=== PATIENT | male | born 1940 | race Caucasian/White ===

== ENCOUNTER 2018-07-27 10:16 | Day surgery (SDC) | payer MEDICARE ==
[2018-07-27] MEDS ORDERED: LIDOCAINE 1% W/EPI 1:200,000 MPF 30ML SQ ONE (10:17)
--- NOTE | 2018-07-28 08:30 | Operative Note ---
DATE OF SURGERY: 07/27/2018 PREOPERATIVE DIAGNOSES: 1. Right ring finger trigger finger. 2. Right middle finger trigger finger. OPERATION: 1. Right ring finger trigger finger release. 2. Right middle finger trigger finger release. Staff Surgeon: Jm Mejias MD Anesthesia: Local. Preparation: Chloraprep. Individual Considerations: None. PROCEDURE: The patient was taken to the operating room and placed supine on the operating room table. His right arm was prepped and draped in the usual fashion. The patient had a volar approach to the A1 gordon. A longitudinal incision was made directly over the A1 gordon about 2 cm. The skin was infiltrated with 1% lidocaine with epinephrine prior. The limb was elevated and tourniquet was inflated to 250 mmHg. I started on the middle finger. An incision was made directly over the gordon. Sharp dissection carried down through the skin. Blunt dissection carried down on top of the gordon. Soft tissue was retracted on either side to avoid the neurovascular bundle. A geoff was made in the gordon and it was released proximally and distally. I had him move his finger. It would no longer trigger. I did the exact same procedure as described on the ring finger. The tourniquet was let down. Hemostasis was obtained with compression. After irrigation, the skin was approximated with interrupted 3-0 nylon in a vertical mattress fashion. A sterile bulky compressive hand dressing was applied. The patient tolerated procedure well. Needle and sponge counts were correct. Estimated blood loss was minimal. He was taken back to the recovery room in good condition. There were no complications. ALEJA
== END 2018-07-27 11:40 | disposition home or self-care (01) ==
LOC: SUR 10:16
PROVIDERS: ATTEND Orthopaedic Surgery
DX: M65.341 Trigger finger, right ring finger (principal); M65.331 Trigger finger, right middle finger; I10 Essential (primary) hypertension; Z79.01 Long term (current) use of anticoagulants

== ENCOUNTER 2018-08-04 13:44 | Day surgery (SDC) | payer MEDICARE ==
--- NOTE | 2018-08-06 09:40 | Operative Note ---
DATE OF SURGERY: 08/04/2018 PREOPERATIVE DIAGNOSIS: Left middle finger trigger finger. POSTOPERATIVE DIAGNOSIS: Left middle finger trigger finger. OPERATION: Left middle finger trigger finger release. Staff Surgeon: Jm Mejias MD Anesthesia: Local. Preparation: Chloraprep. Individual Considerations: None. PROCEDURE: The patient was taken to the operating room and placed supine on the operating room table. His left upper extremity was prepped and draped in the usual fashion. The patient had a longitudinal incision over the A1 gordon volarly. Skin was infiltrated with 1% lidocaine with epinephrine prior. The limb was elevated. Tourniquet was inflated to 250 mmHg. Sharp dissection carried down through skin and subcutaneous tissue. Blunt dissection carried down directly over the A1 gordon. A geoff was made under direct view after retracting of the neurovascular bundles to either side. It was released proximally and distally. I then had him move his finger, and it would no longer trigger. After irrigation, the skin was approximated with 4-0 nylon in a vertical mattress fashion. A sterile bulky compressive hand dressing was applied. The patient tolerated procedure well. Needle and sponge counts were correct. Estimated blood loss was minimal. The patient was taken back to recovery in good condition. There were no complications. ALEJA
== END 2018-08-04 15:50 | disposition home or self-care (01) ==
LOC: SUR 13:44
PROVIDERS: ATTEND Orthopaedic Surgery
DX: M65.332 Trigger finger, left middle finger (principal); I10 Essential (primary) hypertension; Z79.01 Long term (current) use of anticoagulants

== ENCOUNTER 2018-08-09 10:15 | Inpatient (IN) | payer MEDICARE ==
[2018-08-17] MEDS ORDERED: METOCLOPRAMIDE 10 MG TABLET PO ONE (06:00)
[2018-08-17] MEDS ORDERED: FAMOTIDINE 20MG TABLET PO ONE (06:00)
[2018-08-17] MEDS ORDERED: CEFAZOLIN 2 Gram 2 GM/50 ML BAG IVPB ONE (06:00)
[2018-08-17] MEDS ORDERED: CELECOXIB 100 MG CAPSULE PO ONE (06:00)
[2018-08-17] MEDS ORDERED: VANCOMYCIN HCL 1,000 MG in DEXTROSE 5 % IN WATER 250 ML IVPB ONE ×2 (06:00)
[2018-08-17] MEDS ORDERED: MECLIZINE 25 MG TABLET PO ONE (06:00)
[2018-08-17] MEDS ORDERED: ROPIVACAINE HCL (NAROPIN) /PF 5MG/ML 20ML VIAL IV ONE (08:39)
[2018-08-17] MEDS ORDERED: KETOROLAC 30 MG/ML VIAL IVP ONE (08:39)
[2018-08-17] MEDS ORDERED: BUPIVACAINE 0.5% W/EPI MPF 30 ML VIAL IVP ONE (08:39)
[2018-08-17] MEDS ORDERED: MIDAZOLAM HCL 2MG/2ML VIAL IV ONE (08:39)
[2018-08-17] MEDS ORDERED: LIDOCAINE 2% MDV (20MG/ML) 20ML VIAL IV ONE (08:39)
[2018-08-17] MEDS ORDERED: PROPOFOL 10 MG/ML VIAL IV ONE (08:39)
[2018-08-17] MEDS ORDERED: DEXAMETHASONE 4 MG/ML 1ML VIAL IVP ONE (08:39)
[2018-08-17] MEDS ORDERED: KETAMINE HCL 100MG/1ML VIAL INJ ONE (08:39)
[2018-08-17] MEDS ORDERED: TRANEXAMIC ACID 1,000 MG/10 ML ML IV ONE (08:39)
[2018-08-17] MEDS ORDERED: SEVOFLURANE 250 ML INH ONE (08:39)
[2018-08-17 09:32] LABS: ABO GROUP B; ANTIBODY SCREEN NEGATIVE (NEGATIVE); RH TYPE POSITIVE
[2018-08-17] MEDS ORDERED: KETOROLAC 30 MG/ML VIAL IVP PRN ×2 (13:13)
[2018-08-17] MEDS ORDERED: ONDANSETRON HCL IV 4 MG/2 ML VIAL IVP PRN (13:13)
[2018-08-17] MEDS ORDERED: ZOLPIDEM TARTRATE 5 MG TABLET PO PRN (13:13)
[2018-08-17] MEDS ORDERED: HYDROCODONE/APAP 10/325 TABLET PO PRN (13:13)
[2018-08-17] MEDS ORDERED: MAGNESIUM HYDROXIDE 30 ML UDC PO PRN (13:13)
[2018-08-17] MEDS ORDERED: NALOXONE 0.4 MG/1 ML VIAL IVP PRN (13:13)
[2018-08-17] MEDS ORDERED: AL HYDROX/MAG HYDROX 30ML UD PO PRN (13:13)
[2018-08-17] MEDS ORDERED: HYDROMORPHONE HCL 2 MG/ML VIAL IM PRN (13:13)
[2018-08-17] MEDS ORDERED: BISACODYL 10 MG SUPP RC PRN (13:13)
[2018-08-17] MEDS ORDERED: TRAMADOL HCL 50 MG TABLET PO PRN (13:13)
[2018-08-17] MEDS ORDERED: ACETAMINOPHEN W/ CODEINE 300MG/60MG TABLET PO PRN ×2 (13:13)
[2018-08-17] MEDS ORDERED: DIPHENHYDRAMINE HCL 25 MG CAPSULE PO PRN (13:13)
[2018-08-17] MEDS: POTASSIUM CHLORIDE/D5-0.9%NACL 20 MEQ/1,000 ML BAG IV SCH ×2 (15:21→18:22)
[2018-08-17] MEDS: TAMSULOSIN HCL 0.4 MG CAP.ER.24H PO SCH (15:59)
[2018-08-17] MEDS: CEFAZOLIN 2 Gram 2 GM/50 ML BAG IVPB SCH (18:41)
[2018-08-17] MEDS: APIXABAN 2.5MG TABLET PO SCH (21:22)
[2018-08-17] MEDS: DOCUSATE SODIUM 100 MG CAPSULE PO SCH (21:22)
[2018-08-17] MEDS: RANITIDINE HCL 150 MG TABLET PO SCH (21:23)
[2018-08-18] MEDS: CEFAZOLIN 2 Gram 2 GM/50 ML BAG IVPB SCH ×2 (02:29→14:00)
[2018-08-18] MEDS: POTASSIUM CHLORIDE/D5-0.9%NACL 20 MEQ/1,000 ML BAG IV SCH ×4 (02:33→21:41)
[2018-08-18 06:47] LABS: HEMATOCRIT 35.1 % (42.0-52.0); HEMOGLOBIN 11.6 gm/dl (14.0-18.0)
[2018-08-18 07:03] LABS: BLOOD UREA NITROGEN 15 mg/dL (8-23); EST GLOMERULAR FILTRATION RATE > 60 mL/min; GLUCOSE,RANDOM 129 mg/dL (74-109)
--- NOTE | 2018-08-18 08:30 | Operative Note ---
DATE OF SURGERY: 08/17/2018 PREOPERATIVE DIAGNOSIS: End-stage arthrosis of the right knee. POSTOPERATIVE DIAGNOSIS: End-stage arthrosis of the right knee. OPERATION: Cemented right total knee arthroplasty using [employer] components with a size 7 cobalt chrome femur, a size 7 stem tibia baseplate, a 9 mm lipped tibial insert, and a 35 mm all plastic patella. Staff Surgeon: Jm Mejias MD Anesthesia: General. PREPARATION: Chloraprep. INDIVIDUAL CONSIDERATIONS: None. PROCEDURE: The patient was taken to the operating room, placed supine on the operating room table. He had a successful induction of general anesthetic. The right lower extremity was prepped and draped in the usual fashion. The patient had a midline approach to the knee. The limb was elevated and tourniquet was inflated to 250 mmHg. Sharp dissection carried down through skin and subcutaneous tissue. Small veins were coagulated with a Bovie. A medial arthrotomy was performed. The patella was everted and the knee was flexed. He had exposed bone in the medial and patellofemoral compartments with osteophytes. Fat pad was resected, ACL was sacrificed, provisional anterior meniscectomies were performed. The capsule was released from the medial proximal tibia. The patient had an anterior medullary nail, so I had to do this basically freehand using longitudinal guides. I positioned the initial femoral cutting jig adjusting for varus, valgus, and flexion and secured it with pins. It was set for a 10 mm resection. The initial transverse cut was then made. The skin guide was placed in the anterior and posterior photogrammetry airplane pilot holes. It was found that a size 7 would be appropriate. The anterior and posterior cuts followed by chamfer cuts were made. Osteophytes removed, and a size 7 trial was placed and found to fit well. The tibia was brought forward and the remainder of the meniscal remnants removed with a Bovie. The extraarticular tibial cutting jig was placed. It was cut in neutral with a 3-degree AP slope. Care was taken to adjust for rotation and flexion using the extraarticular alignment guide and bony landmarks. It was set for a 9 mm resection keyed off the high lateral side and secured with pins. When cutting the tibia, care was taken to preserve the PCL insertion on the tibia. After removing osteophytes, it could easily fit a size 7. It was adjusted for rotation and secured with pins. With a 9 mm lipped trial and femoral trial, there was excellent motion and stability, ligamentous balance, rotation alignment were thought to be normal. The femoral photogrammetry airplane pilot holes were impacted and the tri-flange tibial stamp was impacted. These trial components were removed. The patient had a thick patella. Roughly 9 mm of bone was removed freehand. I was able to easily fit a 35 patella. The 3 photogrammetry airplane pilot holes were drilled. Tourniquet was let down briefly to get bleeders posteriorly and then placed back up again. The knee was then thoroughly irrigated out with pulsatile Betadine and saline to remove any visual or palpable debris. Bony surfaces were then dried. A size 7 stem tibia baseplate was cemented into place followed by impaction of the 9 mm lipped tibial insert followed by cementing in the size 7 cobalt chrome femur followed by cementing in the 35 mm patella. The implant surfaces were compressed, excess cement was removed, and after the cement had set, there was excellent motion and stability, ligamentous balance, rotation alignment, and patellofemoral tracking were normal. No lateral release was required. Again thorough irrigation. Tourniquet was let down. Hemostasis was obtained with a Bovie. The capsule was then closed with running #2 quill, subcu was closed in layers with running 0 quill, skin was closed with stacie. Prior to closure, I had infiltrated the skin and subcutaneous tissue and periosteum with 30 mL of 0.5% Marcaine with epinephrine. I then mixed 1 g of tranexamic acid with 30 mL of saline and injected into the knee through a sterile 18-gauge needle, and a sterile bulky compressive GOGO-type dressing was applied. The patient tolerated the procedure well. Needle and sponge counts were correct. Estimated blood loss was minimal, and he was taken back to recovery in good condition. There were no complications. ALEJA
[2018-08-18] MEDS: MAGNESIUM OXIDE 400 MG TABLET PO SCH (10:25)
[2018-08-18] MEDS: FERROUS SULFATE 325 MG TAB PO SCH (10:26)
[2018-08-18] MEDS: DOCUSATE SODIUM 100 MG CAPSULE PO SCH ×2 (10:26→21:40)
[2018-08-18] MEDS: APIXABAN 2.5MG TABLET PO SCH ×2 (10:26→21:40)
[2018-08-18] MEDS: TAMSULOSIN HCL 0.4 MG CAP.ER.24H PO SCH (10:26)
[2018-08-18] MEDS: CHOLECALCIFEROL 1,000 UNIT TABLET PO SCH (10:26)
[2018-08-18] MEDS: LISINOPRIL 10 MG TABLET PO SCH (10:26)
[2018-08-18] MEDS: MULTIVITAMINS/MINERALS TABLET PO SCH (10:26)
[2018-08-18] MEDS: HYDROCODONE/APAP 10/325 TABLET PO PRN (11:19)
--- NOTE | 2018-08-18 14:27 | Rehab Evaluation ---
Patient Information - Patient Information Diagnosis: right knee arthritis Surgery: Yes (right total knee arthroplasty) Date of Surgery: 08/17/18 Past Med/Yuri Hx Detail: Detail (Pt had stuart hand surgery for trigger finger release in the past few weeks and he reports significant numbness in stuart hands.) Past Medical/Surgical Hx: PAST MEDICAL/SURGICAL HISTORY Past Surgical History RIGHT TRIGGER FINGER RELEASE BACK SX LUMBAR LAURIE RIGHT LEG BILAT CATS PMH - Respiratory Hx Respiratory Disorders No Hx Sleep Apnea No PMH - Cardiovascular Hx Cardiovascular Disorders Yes Hx Deep Vein Thrombosis Yes: ON ELIQUIS APRIL 2018 AND AFTER BACK SX SEVERAL YRS AGO Hx Edema Yes: FEET Hx Hypertension Yes: ON MEDS GOOD CONTROL Exercise Tolerance Fair Comment: D/T KNEE PAIN PMH - Neuro Hx Neurological Disorders Yes Hx Neuropathy Yes: HANDS PMH - GI Hx Gastrointestinal Disorders Yes Hx Gastroesophageal Reflux Yes: SOMETIMES Comment: CHRONIC DIARRHEA PMH - Hx Genitourinary Disorders Yes Hx Prostate Problems Yes: ENLARGED PMH - Endocrine Hx Endocrine Disorders No PMH - Musculoskeletal Hx Musculoskeletal Disorders Yes Hx Arthritis Yes: KNEES Hx Back Injury Yes: LUMBAR SX PMH - Psych Hx Psychiatric Problems No PMH - Hematology/Oncology Hx Hematology/Oncology Yes Disorders Hx Bruising Yes: BRUISES EASILY 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 He has 2 steps and 1 railing at the entrance. He has a walk in shower with 2 seats and 2 grab bars and an elevated toilet without a grab bar. Pt reports his is responsible for all home mgmt , meal prep and laundry and she has been assisting him with self cares due to hand surgeries.) Social History: Detail (Supportive spouse.) Precautions: [place], [place], Other (WBAT right LE, stuart hand numbness) - Time With Patient Total Time Spent With Patient (Min): 60 Treatment Procedures: Detail (OT eval low complexity) Subjective Information - Subjective Information Per Patient Objective Data - Pain Pain Present: Yes (07/18) - Mental Status Patient Orientation: Oriented x3 - Visual Perception Appears within normal limits for therapeutic activities - ROM Not within normal limits (Stuart UE AROM WNL with exception of stuart hand motion which is impaired due to recent surgery.) - Strength/Tone Not within normal limits (Stuart UE strength grossly 4+/5 except hand strength which is significantly impaired due to recent hand surgery.) - Coordination Deficit (Stuart hand coordination significantly impaired due to numbness from recent hand surgery.) - Bed Mobility Independent (Ind with supine to sit using hospital bed railing.) - Transfers Needs Assist (Min assist for sit to stand from raised hospital bed.) - Balance Balance Sitting: Good Balance Standing: Poor - Sensation Deficit (Pt presents with stuart hand numbness from recent hand surgeries.) - Gait Detail (Pt amb several feet with 2 wheeled walker but then was unable to control walker due to hand impairments and he required assist to return to sitting at EOB.) - ADL's/IADL's Detail (Pt demonstrates Ind with upper body dressing, he required min to mod assist with lower body dressing due to inability to hold hospital bed rail while reaching forward to feet.) Therapy Assessment - Therapy Assessment Detail (Pt presents with significant deficits in stuart hand function which are limiting his safety and Ind with functional mobility and self care skills.) Problem List - Problem List Occupational Therapy Problem List: Detail (1. Decreased Ind with total body dressing. 2. Decreased Ind with bed mobility and functional mobility needed for safe and Ind self cares. 3. Impaired stuart hand coordination and sensation.) Goals - Goals Occupational Therapy Goals: 1. Pt will be Ind with modified LE dressing techniques. 2. Pt will be Ind with bed mobility and ambulating household distances. 3. Pt will be Ind with HEP for stuart hand coordination and sensory retraining. Prognosis - Prognosis Good Plan - Plan Occupational Therapy Plan: OT to continue 2-4 days per week to address goals and problem list above.
--- NOTE | 2018-08-18 15:11 | Rehab Evaluation ---
Patient Information - Patient Information Diagnosis: right knee arthritis Ordered Treatment: PT Evaluate and Treat Status: Initial Evaluation Surgery: Yes (right total knee arthroplasty) Date of Surgery: 08/17/18 Past Med/Yuri Hx Detail: Detail (Pt had ryann hand surgery for trigger finger release in the past few weeks and he reports significant numbness in ryann hands.) Past Medical/Surgical Hx: PAST MEDICAL/SURGICAL HISTORY Past Surgical History RIGHT TRIGGER FINGER RELEASE BACK SX LUMBAR LAURIE RIGHT LEG BILAT CATS PMH - Respiratory Hx Respiratory Disorders No Hx Sleep Apnea No PMH - Cardiovascular Hx Cardiovascular Disorders Yes Hx Deep Vein Thrombosis Yes: ON ELIQUIS APRIL 2018 AND AFTER BACK SX SEVERAL YRS AGO Hx Edema Yes: FEET Hx Hypertension Yes: ON MEDS GOOD CONTROL Exercise Tolerance Fair Comment: D/T KNEE PAIN PMH - Neuro Hx Neurological Disorders Yes Hx Neuropathy Yes: HANDS PMH - GI Hx Gastrointestinal Disorders Yes Hx Gastroesophageal Reflux Yes: SOMETIMES Comment: CHRONIC DIARRHEA PMH - Hx Genitourinary Disorders Yes Hx Prostate Problems Yes: ENLARGED PMH - Endocrine Hx Endocrine Disorders No PMH - Musculoskeletal Hx Musculoskeletal Disorders Yes Hx Arthritis Yes: KNEES Hx Back Injury Yes: LUMBAR SX PMH - Psych Hx Psychiatric Problems No PMH - Hematology/Oncology Hx Hematology/Oncology Yes Disorders Hx Bruising Yes: BRUISES EASILY 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 He has 2 steps and 1 railing at the entrance. He has a walk in shower with 2 seats and 2 grab bars and an elevated toilet without a grab bar. Pt reports his is responsible for all home mgmt , meal prep and laundry and she has been assisting him with self cares due to hand surgeries.) Social History: Detail (Supportive spouse.) Precautions: [place], Fall, Other (WBAT right LE, ryann hand numbness) - Time With Patient Total Time Spent With Patient (Min): 30 Treatment Procedures: Detail (Initial Evaluation, Therapeutic exercises.) Subjective Information - Subjective Information Per Patient (The patient had complaints of L knee pain but did not rate his pain using 0-10 pain scale.) Objective Data - Mental Status Patient Orientation: Oriented x3 (The patient at times had difficulty following simple commands. The patient became agitiated at times, yelling at therapists when he was standing-stating he was being pushed forward.) - Visual Perception Appears within normal limits for therapeutic activities - ROM Not within normal limits (The patient's L knee AROM was limited as to be expected following surgery. The patient's R LE AROM was WFL.) - Strength/Tone Not within normal limits (The patient's LE strength was not tested formally s/ p surgery however functionally patient has difficulty standing and bearing weight on both LE's and L LE puja at times and patient requires assistance lifting both LE's into bed.) - Bed Mobility Needs Assist (Minimal PA of 2 with sit to supine.) - Transfers Needs Assist (Moderate to Maximal PA of 1 for sit to stand from lower surface. Maximal PA of 1 for pivot transfer from low chair to bed when patient was fatigued.) - Balance Balance Standing: Poor (The patient stands in a flexed position and requires walker and moderate support to stand.) - Sensation Deficit (Numbness in both UE's) - Gait Detail (The patient stood to bilateral platform walker but did not ambulate. The patient required CG of 2 to stand and maximal verbal cues for proper positioning.) Therapy Assessment - Therapy Assessment Detail (The patient has bilateral LE weakness and bilateral hand numbness which greatly impairs his mobility. The patient's stated that patient was ambulating with walker prior to surgery but was having more difficulty. The patient required assistance with all mobility, transfers and ambulation. Recommend subacute Rehab to return to previous functional level.) Patient Education - Patient Education Teaching Topic: Exercise/Activity (The patient was able to complete TKA exercises with verbal cues including: SLR, heel slides seated, quad sets, ankle pumps, hamstring sets gluteal sets.) Response: Return Demonstration Teaching Method: Demonstration, Handout Teaching Recipient: Patient Barriers To Learning: Age Related Problem List - Problem List Physical Therapy Problem List: Detail (1) Numbness in UE's 2) LE weakness bilaterally 3) Assistance with bed mobility, transfers 4) Impaired ambulation/ Non ambulatory) Occupational Therapy Problem List: Detail (1. Decreased Ind with total body dressing. 2. Decreased Ind with bed mobility and functional mobility needed for safe and Ind self cares. 3. Impaired ryann hand coordination and sensation.) Goals - Goals Physical Therapy Goals: 1) Independent consistantly with bed mobility. 2) Independent with sit to and from stand transfer. 3)The patient will ambulate with appropriate assistive device independently WBAT on the LE household distances. 4) The patient ambulated on stairs with supervision for safety using proper technique. Occupational Therapy Goals: 1. Pt will be Ind with modified LE dressing techniques. 2. Pt will be Ind with bed mobility and ambulating household distances. 3. Pt will be Ind with HEP for ryann hand coordination and sensory retraining. Prognosis - Prognosis Moderate Plan - Plan Physical Therapy Plan: PT 1-2 times a day for gait training, transfer training, bed mobility and LE strengthening exercises. Occupational Therapy Plan: OT to continue 2-4 days per week to address goals and problem list above.
--- NOTE | 2018-08-18 16:46 | Physical Therapy Tx Note ---
Physical Therapy Tx Note - Treatment Note Tolerated: Fair Total Time Spent With Patient: 20 Physical Therapy Tx Note: Detail (The patient was seen this pm. The patient completed supine to sit independently with head of bed elevated with use of hand rail. The patient completed sit to stand from elevated bed x 1 with CG and x 2 with min to moderate PA of 1. The patient stood to his front wheeled walker x 3 for aprox 20 seconds. Patient was unable to take steps to transfer to chair. The patient completed sit to supine with minimal PA of LE's. Call light was placed within reach. Nursing staff was advised to transfer patient using Easy Stand.) Physical Therapy Problem List: Detail (1) Numbness in UE's 2) LE weakness bilaterally 3) Assistance with bed mobility, transfers 4) Impaired ambulation/ Non ambulatory) Physical Therapy Goals: 1) Independent consistantly with bed mobility. 2) Independent with sit to and from stand transfer. 3)The patient will ambulate with appropriate assistive device independently WBAT on the LE household distances. 4) The patient ambulated on stairs with supervision for safety using proper technique. Physical Therapy Plan: PT 1-2 times a day for gait training, transfer training, bed mobility and LE strengthening exercises.
[2018-08-18] MEDS: RANITIDINE HCL 150 MG TABLET PO SCH (21:40)
[2018-08-19] MEDS: ACETAMINOPHEN 325 MG TAB PO PRN ×2 (01:36→12:02)
[2018-08-19 06:37] LABS: HEMATOCRIT 36.3 % (42.0-52.0)
[2018-08-19 06:42] LABS: BLOOD UREA NITROGEN 13 mg/dL (8-23); CREATININE 0.8 mg/dL (0.7-1.2); EST GLOMERULAR FILTRATION RATE > 60 mL/min; GLUCOSE,RANDOM 122 mg/dL (74-109)
[2018-08-19] MEDS: POTASSIUM CHLORIDE/D5-0.9%NACL 20 MEQ/1,000 ML BAG IV SCH ×3 (07:48→23:11)
[2018-08-19] MEDS: LISINOPRIL 10 MG TABLET PO SCH (09:35)
[2018-08-19] MEDS: APIXABAN 2.5MG TABLET PO SCH ×2 (09:35→23:10)
[2018-08-19] MEDS: MAGNESIUM OXIDE 400 MG TABLET PO SCH (09:35)
[2018-08-19] MEDS: CHOLECALCIFEROL 1,000 UNIT TABLET PO SCH (09:36)
[2018-08-19] MEDS: MULTIVITAMINS/MINERALS TABLET PO SCH (09:36)
[2018-08-19] MEDS: HYDROCODONE/APAP 10/325 TABLET PO PRN ×3 (09:36→23:05)
[2018-08-19] MEDS: CIPROFLOXACIN HCL 500 MG TABLET PO SCH (09:37)
[2018-08-19] MEDS: TAMSULOSIN HCL 0.4 MG CAP.ER.24H PO SCH (09:38)
[2018-08-19] MEDS: DOCUSATE SODIUM 100 MG CAPSULE PO SCH ×2 (09:38→23:07)
[2018-08-19] MEDS: FERROUS SULFATE 325 MG TAB PO SCH (09:38)
--- NOTE | 2018-08-19 11:31 | Physical Therapy Tx Note ---
Physical Therapy Tx Note - Treatment Note Tolerated: Fair Total Time Spent With Patient: 30 Physical Therapy Tx Note: Detail (Pt lying in bed upon arrival; nrsg in to place Muro catheter due to inability to urinate. Pt declined getting out of bed, stated he had been up in chair for breakfast and for about an hour after ( had just gotten back in bed using Easy Stand w/nrsg). Agreed to perform LE exercises, did 10 reps each of ankle pumps, heel slides, quad isometrics, hamstring isometrics, gluteal isometrics, and assisted SLR and hip abd/add. Exhibited several occurrences of R LE spasticity, triggered by active movement and gentle passive stretch to hamstring. Nrsg notified of spasticity. Encouraged pt to sit up for lunch. Pt had significant difficulty managing cell phone and room phone to talk to his brother, due to B hand numbness. Call light and bedside table in reach; pt asleep by end of session.) Physical Therapy Problem List: Detail (1) Numbness in UE's 2) LE weakness bilaterally 3) Assistance with bed mobility, transfers 4) Impaired ambulation/ Non ambulatory) Physical Therapy Goals: 1) Independent consistantly with bed mobility. 2) Independent with sit to and from stand transfer. 3)The patient will ambulate with appropriate assistive device independently WBAT on the LE household distances. 4) The patient ambulated on stairs with supervision for safety using proper technique. Physical Therapy Plan: PT 1-2 times a day for gait training, transfer training, bed mobility and LE strengthening exercises.
[2018-08-19] MEDS: DIAZEPAM 5 MG TABLET PO PRN ×2 (12:01→23:04)
--- NOTE | 2018-08-19 12:41 | RADIOLOGY REPORT ---
EXAM: CHEST, ONE VIEW HISTORY: SUBACUTE REHAB PLACEMENT. TECHNIQUE: A single mobile upright view of the chest was obtained. Comparison: None. FINDINGS: The heart is not enlarged and the pulmonary vasculature is nondilated. The lungs and pleural spaces are clear. Bone cement is suggested in two, possibly three mid to lower thoracic vertebral bodies. An old healed fracture deformity of the posterolateral left fifth rib is demonstrated. Mild cortical irregularity of the posterior lateral left fourth rib is also likely an old healed fracture deformity. Degenerative changes are scattered throughout the visualized spine and shoulder girdles. IMPRESSION: NO EVIDENCE OF ACUTE CARDIOPULMONARY DISEASE. JOB NUMBER: [id number] [facility]
[2018-08-19] MEDS ORDERED: BUPIVACAINE 0.5% W/EPI MPF 30 ML VIAL IVP ONE (15:27)
[2018-08-19] MEDS ORDERED: TRANEXAMIC ACID 1,000 MG/10 ML ML IV ONE (15:27)
[2018-08-19] MEDS: RANITIDINE HCL 150 MG TABLET PO SCH (23:03)
[2018-08-20] MEDS: POTASSIUM CHLORIDE/D5-0.9%NACL 20 MEQ/1,000 ML BAG IV SCH (06:10)
--- NOTE | 2018-08-20 08:50 | Discharge Summary ---
DATE OF ADMISSION: 08/17/2018 DATE OF DISCHARGE: 08/20/2018 DATE OF SURGERY: 08/17/2018 HISTORY: The patient is a delightful 78-year-old male who presents with end-stage arthrosis of his right knee. He was admitted after right total knee arthroplasty. Postoperatively he did well. Hospital course was otherwise unremarkable. Discharge hemoglobin is about 10 and did not require transfusion. He did develop urinary retention in spite of him taking Flomax. This required him to have a Muro catheter placed. The plan is to transfer him to rehab. He takes Eliquis chronically, so he will continue with that, 5 mg twice a day. We will give him [place] for pain. His Muro should stay in for 5 days, so that can be removed on 08/24/2018, and the facility should monitor his postvoid residuals. He should remain on the Cipro 750 mg daily until 08/30/2018. He should follow up in my office in 4 weeks. His sutures should be removed either by visiting nurse or at the facility on 08/31/2018. FINAL DIAGNOSIS AND PRIMARY DIAGNOSIS: End-stage arthrosis of the right knee. SECONDARY DIAGNOSIS: Urinary retention. OPERATIONS AND PROCEDURES: Cemented right total knee arthroplasty. DISCHARGE CONDITION: Good. ALEJA
[2018-08-20] MEDS: MAGNESIUM OXIDE 400 MG TABLET PO SCH (10:13)
[2018-08-20] MEDS: DOCUSATE SODIUM 100 MG CAPSULE PO SCH (10:13)
[2018-08-20] MEDS: MULTIVITAMINS/MINERALS TABLET PO SCH (10:13)
[2018-08-20] MEDS: CHOLECALCIFEROL 1,000 UNIT TABLET PO SCH (10:13)
[2018-08-20] MEDS: TAMSULOSIN HCL 0.4 MG CAP.ER.24H PO SCH (10:13)
[2018-08-20] MEDS: FERROUS SULFATE 325 MG TAB PO SCH (10:14)
[2018-08-20] MEDS: LISINOPRIL 10 MG TABLET PO SCH (10:14)
[2018-08-20] MEDS: APIXABAN 2.5MG TABLET PO SCH (10:14)
[2018-08-20] MEDS: CIPROFLOXACIN HCL 500 MG TABLET PO SCH (10:14)
[2018-08-20] MEDS: HYDROCODONE/APAP 10/325 TABLET PO PRN (10:14)
[2018-08-20] MEDS ORDERED: MAGNESIUM HYDROXIDE 30 ML UDC PO ONE (10:18)
--- NOTE | 2018-08-20 12:09 | Physical Therapy Tx Note ---
Physical Therapy Tx Note - Treatment Note Tolerated: Good Total Time Spent With Patient: 20 Physical Therapy Tx Note: Detail (The patient was in bed when PT arrived. The patient required minimal PA of 2 with supine to sit. The patient required mod PA of 2 with sit to and from stand transfer. The patient completed pivot transfer with mod PA of 2. The patient was left in chair with call light in place.) Physical Therapy Problem List: Detail (1) Numbness in UE's 2) LE weakness bilaterally 3) Assistance with bed mobility, transfers 4) Impaired ambulation/ Non ambulatory) Physical Therapy Goals: 1) Independent consistantly with bed mobility. 2) Independent with sit to and from stand transfer. 3)The patient will ambulate with appropriate assistive device independently WBAT on the LE household distances. 4) The patient ambulated on stairs with supervision for safety using proper technique. Physical Therapy Plan: PT 1-2 times a day for gait training, transfer training, bed mobility and LE strengthening exercises.
[2018-08-20] MEDS: ACETAMINOPHEN 325 MG TAB PO PRN (12:55)
== END 2018-08-20 14:45 | DRG 470 ==
LOC: SUR 08-17 08:38 → MEDSURG 08-17 08:38 → EDSTATUS 08-17 13:30 → SUR 08-17 13:55 → MEDSURG 08-17 13:55
PROVIDERS: ADMIT Orthopaedic Surgery; ATTEND Orthopaedic Surgery
PROC: 0SRC069 Replacement of Right Knee Joint with Oxidized Zirconium on Polyethylene Synthetic Substitute, Cemented, Open Approach (ICD-10-PCS; principal; 2018-08-17 11:00)
DX: M17.11 Unilateral primary osteoarthritis, right knee (principal); I10 Essential (primary) hypertension; Z79.01 Long term (current) use of anticoagulants; Z68.35 Body mass index [BMI] 35.0-35.9, adult; Z86.718 Personal history of other venous thrombosis and embolism
CPT/HCPCS: 71045; 76942; 80048; 85014; 85018; 86850; 86900; 86901; 97110; 97530; C1776; J1885; J3480; J3490; J7060